=== PATIENT | female | born 1935 | race Caucasian/White ===

== ENCOUNTER 2018-09-30 21:41 | Emergency (ER) | payer MEDICARE ==
[~2018-09-30] VITALS: Ht 160 cm; Wt 79.4 kg
[2018-09-30 21:52] VITALS: BP 150/90
--- NOTE | 2018-09-30 22:00 | NUR ---
TO LOBBY A/W BED AMBULATORY
--- NOTE | 2018-09-30 22:22 | NUR ---
PT AMBULATED TO BED 10
--- NOTE | 2018-09-30 22:38 | NUR ---
BIB , REPORTS EPIGASTRIC PAIN AND VOMITING X 1 WEEK. STATES SHE IS TAKING MOTRIN FOR SCIATICA PAIN AND WAS PRESCRIBED ZANTAC TO HELP PREVENT GI SYMPTOMS. AT BEDSIDE. BED IN LOW LOCKED POSTION.
--- NOTE | 2018-09-30 22:47 | NUR ---
Dr. Casillas evaluating patient at bedside.
[2018-09-30] MEDS ORDERED: ONDANSETRON 4 MG/2 ML VIAL IVP ONE (23:10)
[2018-09-30] MEDS ORDERED: NACL 0.9% 500 ML IV ONE (23:10)
[2018-09-30] MEDS ORDERED: PANTOPRAZOLE 40 MG INJ VIAL IVP ONE (23:10)
--- NOTE | 2018-09-30 23:16 | NUR ---
PT TAKEN TO CT VIA BED
--- NOTE | 2018-09-30 23:42 | NUR ---
PATIENT REFUESING MEDICATIONS AT THIS TIME, DR WOLF MADE AWARE.
[2018-10-01 00:30] VITALS: BP 144/88
--- NOTE | 2018-10-01 00:30 | NUR ---
Patient discharged with v/s stable. Written and verbal after care instructions given and explained. Patient alert, oriented and verbalized understanding of instructions. Ambulatory with steady gait. All questions addressed prior to discharge. ID band removed. Patient advised to follow up with PMD. Rx of PROTONIX AND ZOFRAN given. Patient educated on indication of medication including possible reaction and side effects. Opportunity to ask questions provided and answered.
== END 2018-10-01 00:30 | disposition home or self-care (01) ==
LOC: MED 21:41
DX: K29.70 Gastritis, unspecified, without bleeding (principal); R03.0 Elevated blood-pressure reading, without diagnosis of hypertension
CPT/HCPCS: 99284; C9113; J2405

== ENCOUNTER 2020-04-06 14:48 | Emergency (ER) | payer MEDICARE ==
[~2020-04-06] VITALS: Ht 159.4 cm; Wt 83.0 kg
[2020-04-06 14:53] VITALS: BP 157/84
--- NOTE | 2020-04-06 15:05 | NUR ---
amb to bed 12
--- NOTE | 2020-04-06 15:08 | NUR ---
Assumed pt care.
--- NOTE | 2020-04-06 15:10 | NUR ---
notified Dr. Arshad of pt c/o and the hematoma
--- NOTE | 2020-04-06 15:14 | NUR ---
Dr Arshad at bedside examining pt
--- NOTE | 2020-04-06 15:17 | NUR ---
84 y/o female with c/o left eye swelling and bruising after fall. Left eye hematoma on inspection. Left pain and eye 5/10 describes as aching. No changes in vision or loss of consciousness. Ambulates with steady gait. NKA PMH: Osteoarthritis Rx: ibuprofen 800mg PO TID.
--- NOTE | 2020-04-06 15:48 | NUR ---
xray at bedside
--- NOTE | 2020-04-06 16:05 | NUR ---
Patient taken to CT scan via wheelchair by tech.
--- NOTE | 2020-04-06 16:12 | NUR ---
Pt returned from CT via wheelchair
--- NOTE | 2020-04-06 17:22 | NUR ---
Pt resting comfortably, VSS.
--- NOTE | 2020-04-06 17:30 | NUR ---
Dr. Arshad at pt bedside reporting on CT scan and XR.
[2020-04-06 17:42] VITALS: BP 157/84
--- NOTE | 2020-04-06 17:42 | NUR ---
Patient discharged with v/s stable. Written and verbal after care instructions given and explained. Patient verbalized understanding. Ambulatory with steady gait. All questions addressed prior to discharge. Advised to follow up with PMD.
== END 2020-04-06 17:42 | disposition home or self-care (01) ==
LOC: MED 14:48
DX: S09.90XA Unspecified injury of head, initial encounter (principal); M79.642 Pain in left hand; W10.8XXA Fall (on) (from) other stairs and steps, initial encounter; Y93.89 Activity, other specified; Y92.89 Other specified places as the place of occurrence of the external cause; Y99.8 Other external cause status
CPT/HCPCS: 70450; 73130; 99284; Q0092